=== PATIENT | female | born 1980 | race Caucasian/White ===

== ENCOUNTER 2016-06-22 22:17 | Emergency (ER) | payer OTHER ==
[2016-06-22 23:29] LABS: URINE BILIRUBIN NEGATIVE (NEGATIVE); URINE BLOOD NEGATIVE (NEGATIVE); URINE GLUCOSE (UA) NEGATIVE (NEGATIVE); URINE LEUKOCYTE ESTERASE NEGATIVE (NEGATIVE); URINE NITRITE NEGATIVE (NEGATIVE); URINE PROTEIN 1+ (NEGATIVE); URINE UROBILINOGEN 1 mg/dL (0-1 mg/dl)
[2016-06-22 23:32] LABS: HCG,QUALITATIVE URINE NEGATIVE
[2016-06-22 23:35] LABS: URINE APPEARANCE HAZY; URINE COLOR AMBER
[2016-06-22 23:52] LABS: URINE AMORPHOUS SEDIMENT 3+ URATES; URINE BACTERIA 0; URINE EPITHELIAL CELLS 15-20 /hpf
[2016-06-22 23:53] LABS: ABSOLUTE NEUTROPHIL COUNT 12.7 K/mm3 (1.8-7.7); BASO # 0.1 K/mm3 (0.0-0.2); BASO % 0.4 % (0.2-1.0); EOS # 0.1 (0.0-0.5); EOS % 0.6 % (0.9-2.9); HEMATOCRIT 42.5 % (37.0-47.0); HEMOGLOBIN 13.8 gm/l (12.0-16.0); IMM NEUT # 0.1 K/mm3 (0-0.2); IMM NEUT% 0.3 % (0-1); LYMPH # 2.9 (1.0-4.8); MEAN CELL VOLUME 86.6 fl (81.0-99.0); MEAN CORPUSCULAR HEMOGLOBIN 28.1 pg (27.0-31.0); MEAN CORPUSCULAR HGB CONC 32.5 g/dl (33.0-37.0); MEAN PLATELET VOLUME 9.6 fl (7.4-10.4); MONO # 0.5 (0.0-0.8); MONO % 2.8 % (4-12); NEUT % 77.9 % (43-75); PLATELET COUNT 411 K/mm3 (130-400); RED CELL DISTRIBUTION WIDTH 13.2 % (11.5-14.5)
[2016-06-23 00:14] LABS: ALB/GLOB RATIO 0.9 (>1.0); ALBUMIN 3.9 gm/dL (3.5-5.7); CALCIUM 9.2 mg/dL (8.6-10.3)
--- NOTE | 2016-06-23 06:38 | CT ---
Exam Type: ABD/PELVIS W/O CON Date and Time: 06/22/2016 11:23 PM Clinical information: Nausea and vomiting. Comparison: None Procedure: Imaging device: [employer] Aquilion [address] scanner 1 mm axial images were obtained through the abdomen and pelvis. Stacked reconstructed 3, 4 and 5 mm images were photographed in the axial coronal and sagittal planes. No oral contrast was utilized for this examination. Exam: Without intravenous contrast. FINDINGS: Lung bases:The visualized lung bases appear to be appropriate with no mass, effusion or consolidation visualized. Liver: the liver is homogeneous with no discrete abnormality visualized. No definite findings of biliary dilatation are observed. Spleen: The spleen is homogeneous and does not appear to be enlarged. Gallbladder: Normal without enlargement or evidence of adjacent inflammatory changes. Pancreas: Normal without enlargement or evidence of adjacent inflammatory changes. Adrenal glands: There is a 1.5 cm left adrenal nodule identified with a Hounsfield attenuation value of 20 Hounsfield units. This is in the indeterminate range though this likely reflects a small adrenal adenoma. Abdominal aorta: The aorta is of normal caliber and appears to be without significant atherosclerotic disease. Kidneys: The kidneys appear to be symmetric in size with no perinephric inflammatory changes are identified. No current findings of hydronephrosis are seen. Bowel structures: The visualized bowel is of normal caliber without evidence of dilatation or obstruction. No free fluid or mesenteric inflammatory changes are identified. Appendix: The appendix is well-visualized and appears to be of normal caliber. No periappendiceal inflammatory changes or CT findings of appendicitis are currently observed. Bladder: The bladder is of normal contour. No wall thickening or significant distention is observed. Hernia: No abdominal wall or inguinal hernia is visualized on this examination. Adenopathy: No significant enlarged adenopathy is visualized. Osseous structures: There is bilateral spondylolysis of L5 noted with slight anterolisthesis of L5 on S1. Pelvic structures: No discrete pelvic abnormalities are visualized in this examination. IMPRESSION: 1. No evidence of an intrarenal or intraureteral calculus visualized. 2. A small indeterminate 1.5 cm left adrenal nodule. This finding is stable from the appearance on prior CT examination of 06/09/2015. 3. Bilateral spondylolysis of L5 with anterolisthesis of L5 on S1. The findings were called to the emergency room at 0015 hours, 06/23/2016, by [facility].
[2016-06-24 14:31] LABS: CHLAMYDIA BD Negative (Negative); N.GONORRHOEAE BD Negative (Negative); SOURCE Urine (())
== END 2016-06-23 00:45 | disposition home or self-care (01) ==
LOC: ED 22:17
DX: R10.9 Unspecified abdominal pain (principal); F15.10 Other stimulant abuse, uncomplicated

== ENCOUNTER 2016-07-12 00:58 | Emergency (ER) | payer OTHER ==
[2016-07-12] MEDS ORDERED: ALBUTEROL/IPRATROPIUM 2.5/0.5 MG 3 ML/EACH DOSE ONE (02:37)
[2016-07-12] MEDS ORDERED: IBUPROFEN 600 MG TABLET ONE (02:52)
[2016-07-12] MEDS ORDERED: Oseltamivir Phosphate 75 MG CAP ONE (02:53)
== END 2016-07-12 03:33 | disposition home or self-care (01) ==
LOC: ED 00:58
DX: J11.1 Influenza due to unidentified influenza virus with other respiratory manifestations (principal); I10 Essential (primary) hypertension; F17.210 Nicotine dependence, cigarettes, uncomplicated
CPT/HCPCS: 87804; 94640; 99283 ×2; A9270 ×2

== ENCOUNTER 2016-10-12 06:17 | Emergency (ER) | payer OTHER ==
[2016-10-12] MEDS ORDERED: ACETAMINOPHEN 500 MG TABLET ONE (07:09)
[2016-10-12 12:19] LABS: AMPHETAMINES/METHAMPHETAMINES NEGATIVE (NEGATIVE); COCAINE NEGATIVE (NEGATIVE); MARIJUANA POSITIVE (NEGATIVE); METHADONE NEGATIVE (NEGATIVE); OPIATES NEGATIVE (NEGATIVE); TRICYCLIC ANTIDEPRESSANTS NEGATIVE (NEGATIVE)
[2016-10-12 13:31] LABS: HCG,QUALITATIVE URINE NEGATIVE
== END 2016-10-12 14:11 | disposition home or self-care (01) ==
LOC: ED 06:17
DX: M79.1 Myalgia (principal); F41.0 Panic disorder [episodic paroxysmal anxiety]; F12.10 Cannabis abuse, uncomplicated; F15.10 Other stimulant abuse, uncomplicated; F17.210 Nicotine dependence, cigarettes, uncomplicated; E11.9 Type 2 diabetes mellitus without complications; E03.9 Hypothyroidism, unspecified; E66.9 Obesity, unspecified; Z79.84 Long term (current) use of oral hypoglycemic drugs; Z59.0 Homelessness
CPT/HCPCS: 81025; 80305; 99284; 99283; A9270